=== PATIENT | female | born 1985 | race Asian ===

== ENCOUNTER 2017-07-25 18:25 | Emergency (ER) | payer BC, OTHER ==
[2017-07-25] MEDS ORDERED: NS 0.9% 1000 ML*IV.FLUID IV ONE (18:44)
[2017-07-25] MEDS ORDERED: Ibuprofen TAB* 800 MG PO ONE (18:55)
[2017-07-25] MEDS ORDERED: Acetaminophen TAB* 325 MG PO ONE ×2 (18:55→23:00)
--- NOTE | 2017-07-25 19:22 | RAD ---
INDICATION: Cough. COMPARISON: There are no prior studies available for comparison. TECHNIQUE: Dual-energy PA and lateral views of the chest were obtained. FINDINGS: The heart is within normal limits in size. Mediastinal and hilar contours appear within normal limits. There is a small infiltrate at the right lung base. The lungs are otherwise clear. No pleural effusion is seen. IMPRESSION: SMALL RIGHT BASILAR INFILTRATE.
[2017-07-25] MEDS ORDERED: Levofloxacin 500 MG IVPREMIX(* 500 MG/100 ML BAG IVPB ONE (19:31)
[2017-07-25 19:47] LABS: ABS Basophils 0 10^3/ul (0-0.2); ABS Eosinophils 0.3 10^3/ul (0-0.6); ABS Lymphocytes 1.9 10^3/ul (1.0-4.8); ABS Monocytes 0.5 10^3/ul (0-0.8); ABS Nucleated RBC 0 10^3/ul; Eosinophil % 1.7 % (0-6); Hematocrit 41 % (35-47); Hemoglobin 14.1 g/dl (12.0-16.0); Mean Corpuscular HGB Conc 35 g/dl (31-36); Mean Corpuscular Hemoglobin 30 pg (27-31); Mean Corpuscular Volume 87 fL (80-97); Mean Platelet Volume 8 um3 (7.4-10.4); Nucleated Red Blood Cells % 0; Platelet Count 345 10^3/ul (150-450); Red Blood Count 4.64 10^6/ul (4.0-5.4); Red Cell Distribution Width 12 % (10.5-15); White Blood Count 18.8 10^3/ul (3.5-10.8)
[2017-07-25] MEDS ORDERED: NS 0.9% 1000 ML* 1,000 ML IV ONE ×2 (19:53→20:10)
--- NOTE | 2017-07-25 19:54 | ED ---
HPI Febrile Illness - HPI Summary HPI Summary: 32-year-old female presents with flulike symptoms for the past week. She states on Tuesday she developed a cough. She states that she then felt muscle aches the next day. States she has been a fever. She used Tylenol this morning. She has no medical conditions. She admits to chest tightness and occasional shortness of breath. She states her cough is productive. She admits to occasional sore throat. She denies abdominal pain. She denies any pain with urination. She denies any flank pain. She denies any nausea vomiting diarrhea. She denies any headache. She denies any neck stiffness. She does not smoke. She denies any pain or swelling in her calf muscles. no one else is sick. her appetite has been decreased. - History of Current Complaint Chief Complaint: EDFluSymptoms Time Seen by Provider: 07/25/17 18:42 Pain Intensity: 4 - Allergy/Home Medications Allergies/Adverse Reactions: Allergies Allergy/AdvReac Type Severity Reaction Status Date / Time No Known Allergies Allergy Verified 07/25/17 18:31 PMH/Surg Hx/FS Hx/Imm Hx Endocrine/Hematology History: Denies: Hx Anticoagulant Therapy Respiratory History: Denies: Hx Asthma Infectious Disease History: No Infectious Disease History: Denies: Traveled Outside the [place] in Last 30 Days - Family History Known Family History: Negative: Respiratory Disease - Social History Alcohol Use: None Substance Use Type: Reports: None Smoking Status (MU): Never Smoked Tobacco Review of Systems Positive: Fever Negative: Chest Pain Positive: Shortness Of Breath, Cough Negative: Abdominal Pain All Other Systems Reviewed And Are Negative: Yes Physical Exam Triage Information Reviewed: Yes Vital Signs On Initial Exam: Initial Vitals Temp Pulse Resp BP Pulse Ox 102.7 F 119 20 139/87 98 07/25/17 18:28 07/25/17 18:28 07/25/17 18:28 07/25/17 18:28 07/25/17 18:28 Vital Signs Reviewed: Yes Appearance: Positive: Ill-Appearing Skin: Positive: Warm, Dry Head/Face: Positive: Normal Head/Face Inspection Eyes: Positive: Normal, EOMI, NABIL, Conjunctiva Clear ENT: Positive: Normal ENT inspection, Pharynx normal, TMs normal Neck: Positive: Supple, Nontender, No Lymphadenopathy Respiratory/Lung Sounds: Positive: Clear to Auscultation, Breath Sounds Present Cardiovascular: Positive: Normal, RRR Abdomen Description: Positive: Nontender, Soft Bowel Sounds: Positive: Present Musculoskeletal: Positive: Normal Neurological: Positive: Normal Psychiatric: Positive: Normal Diagnostics - Vital Signs Vital Signs Temp Pulse Resp BP Pulse Ox 07/25/17 19:12 126/78 07/25/17 19:07 117 96 07/25/17 19:00 118 136/85 96 07/25/17 18:59 111 96 07/25/17 18:58 104.4 F 117 18 137/85 96 07/25/17 18:57 137/85 07/25/17 18:28 102.7 F 119 20 139/87 98 - Laboratory Lab Results: Lab Results 07/25/17 07/25/17 Range/Units 19:03 19:35 WBC 18.8 H (3.5-10.8) 10^3/ul RBC 4.64 (4.0-5.4) 10^6/ul Hgb 14.1 (12.0-16.0) g/dl Hct 41 (35-47) % MCV 87 (80-97) fL MCH 30 (27-31) pg MCHC 35 (31-36) g/dl RDW 12 (10.5-15) % Plt Count 345 (150-450) 10^3/ul MPV 8 (7.4-10.4) um3 Neut % (Auto) 85.2 H (38-83) % Lymph % (Auto) 10.0 L (25-47) % Bennett % (Auto) 2.9 (0-7) % Eos % (Auto) 1.7 (0-6) % Baso % (Auto) 0.2 (0-2) % Absolute Neuts (auto) 16.0 H (1.5-7.7) 10^3/ul Absolute Lymphs (auto) 1.9 (1.0-4.8) 10^3/ul Absolute Monos (auto) 0.5 (0-0.8) 10^3/ul Absolute Eos (auto) 0.3 (0-0.6) 10^3/ul Absolute Basos (auto) 0 (0-0.2) 10^3/ul Absolute Nucleated RBC 0 10^3/ul Nucleated RBC % 0 Influenza A (Rapid) Negative (Negative) Influenza B (Rapid) Negative (Negative) Result Diagrams: 07/25/17 19:35 07/25/17 21:56 Lab Statement: Any lab studies that have been ordered have been reviewed, and results considered in the medical decision making process. - Radiology chest Xray Interpretation: Positive (See Comments) - IMPRESSION: SMALL RIGHT BASILAR INFILTRATE. Radiology Interpretation Completed By: Radiologist - EKG No standard instances Cardiac Rate: Tachycardia EKG Rhythm: Sinus Tachycardia EKG Interpretation: sinus tachycardia Re-Evaluation - Re-Evaluation First Eval Re-Evaluation Time: 21:34 Change: Improved Comment: feeling better, heart rate is still elevated Second Eval Re-Evaluation Time: 22:05 Comment: discussed admission vs going home and patient would like another liter of fluid and feel how feels. patient is complaining of back pain. has history of back pain. states better with positional changes. tenderness to lower back. neg CVA tenderness. Third Eval Re-Evaluation Time: 22:43 Change: Improved Comment: feeling better after cough medication and would like to go home Course/Dx - Course Course Of Treatment: 32-year-old female presents with flulike symptoms for the past week. She states on Tuesday she developed a cough. She states that she then felt muscle aches the next day. States she has been a fever. She used Tylenol this morning. She has no medical conditions. She admits to chest tightness and occasional shortness of breath. She states her cough is productive. She admits to occasional sore throat. She denies abdominal pain. She denies any pain with urination. She denies any flank pain. She denies any nausea vomiting diarrhea. She denies any headache. She denies any neck stiffness. She does not smoke. She denies any pain or swelling in her calf muscles. no one else is sick. her appetite has been decreased. on exam lungs CTA. abdomen soft nontender. chest xray show pneumonia. wbc 18. gave levaquin and 3 liters of fluid as lactic is elevated. ekg sinus tachycardia. discussed with patient options admission vs treatment as home. discussed case with viry sánchez. patient would like to go home. will have continue levaquin and cough medication. told needs to take tyenlol and ibuprofen more frequently. patient understand and agrees with plan. - Febrile Illness Differential Diagnoses: Pneumonia, Pyelonephritis, Other: - influenza, - Diagnoses Provider Diagnoses: Pneumonia Discharge - Discharge Plan Condition: Stable Disposition: HOME Prescriptions: guaiFENesin/CODIEN 100MG-10MG* [Robitussin AC 100Mg-10Mg*] 5 ml PO Q6H PRN #90 ml MDD 20ml PRN Reason: Cough Levofloxacin TAB* [Levaquin TAB*] 750 mg PO DAILY #9 tab Patient Education Materials: Pneumonia (ED) Referrals: [facility] [Outside] Additional Instructions: Take antibiotic once a day for 10 days Take cough medication 5ml (1 teaspoon) every 6 hours as needed cough Take ibuprofen 600-800mg and tyenlol 500-97mg every 6 hours for fever Use saline in the nose for nasal congestion Use humidifier or place warm bowls of water around the room for cough Establish care with primary to follow up Return to ED if develop any new or worsening symptoms
[2017-07-25] MEDS ORDERED: Levofloxacin 750 MG IVPREMIX(* 750 MG/150 ML BAG IVPB ONE (20:29)
[2017-07-25 21:09] LABS: Urine Appearance Clear; Urine Blood 2+ (Negative); Urine Color Straw; Urine Ketones Trace (Negative); Urine Protein Negative (Negative); Urine Specific Gravity 1.011 (1.010-1.030); Urine Urobilinogen Negative (Negative)
[2017-07-25] MEDS ORDERED: guaiFENesin/CODIEN 100MG-10MG* 5 ML UDC PO ONE (21:44)
[2017-07-25 23:25] VITALS: BP 116/72
== END 2017-07-25 23:39 | disposition home or self-care (01) ==
LOC: ED 18:25
DX: J18.9 Pneumonia, unspecified organism (principal)
CPT/HCPCS: 36415; 71046; 80053; 81003; 81015; 83605; 84132; 84484; 84702; 85025; 85379; 87040; 87077; 87086; 87502; 93005; 96361; 96365; 99284; A9270-GY